=== PATIENT | male | born 1990 | race Caucasian/White ===

== ENCOUNTER 2019-09-08 16:11 | Emergency (ER) | payer SELFPAY ==
[2019-09-08 17:45] LABS: Bilirubin Negative (Negative); Blood, Urine Negative (Negative); Clarity Clear (Clear); Glucose, Urine (Dipstick) Normal (Negative); Leukocyte Negative Leu/uL (Negative); Nitrite Negative (Negative); Protein, Urine (Dipstick) Negative (Neg-Trace); Urobilinogen Normal mg/dL (Less than 2)
--- NOTE | 2019-09-08 20:23 | ULT ---
TESTICULAR/SCROTAL ULTRASOUND: 09/08/19 COMPARISON: None. HISTORY: Pain and swelling. TECHNIQUE: Multiplanar ferraro scale and color Doppler images were obtained in a testicular/scrotal ultrasound. Sp ectral analysis of the Doppler waveforms and testicles were performed. 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 Epididymi are normal in appearance. No hydrocele or varicocele is seen. IMPRESSION: Normal testicular/scrotal ultrasound. POS: [facility]
== END 2019-09-08 19:23 | disposition home or self-care (01) ==
LOC: ERS 16:11
DX: K40.90 Unilateral inguinal hernia, without obstruction or gangrene, not specified as recurrent (principal); F17.210 Nicotine dependence, cigarettes, uncomplicated
CPT/HCPCS: 76870; 81003; 93976